=== PATIENT | male | born 1950 ===

== ENCOUNTER 2017-10-21 08:43 | Emergency (ER) | payer MEDICARE ==
[~2017-10-21] VITALS: Ht 180.3 cm; Wt 107.7 kg
[2017-10-21 08:47] VITALS: BP 150/88
[2017-10-21] MEDS ORDERED: CEFTRIAXONE PMX 1GM/50ML 50 ML IV ONE (09:30)
[2017-10-21] MEDS ORDERED: SODIUM CHLORIDE 0.9% 1,000ML IVBOLUS ONE (09:30)
[2017-10-21] MEDS ORDERED: SODIUM CHLORIDE FLUSH 10ML SYR IVF ONE (09:30)
[2017-10-21 09:35] LABS: MEAN CORPUSCULAR HEMOGLOBIN 23.6 pg (27.5-34.5); MEAN CORPUSCULAR VOLUME 71.7 fL (81-97); MEAN PLATELET VOLUME 10.5 fL (7.4-10.4); PLATELET COUNT 214 x10^3/uL (130-400); RED CELL DISTRIBUTION WIDTH 17.3 % (9.4-14.8)
[2017-10-21 09:37] LABS: ALBUMIN 3.1 g/dL (3.4-5.0); ANION GAP 12 mmol/L (5-15); CALCIUM 8.7 mg/dL (8.5-10.1); CHLORIDE 102 mmol/L (98-107); CREATININE 1.35 mg/dL (0.7-1.3)
[2017-10-21 09:41] LABS: TROPONIN I < 0.015 ng/mL (0.000-0.045)
[2017-10-21 09:47] LABS: MD YES
[2017-10-21 09:49] LABS: BAND#(MANUAL) 0.12 x10^3/uL; BANDS%(MANUAL) 2 % (0-7); LYMPH#(MANUAL) 0.75 x10^3/uL (1-3.4); LYMPHS% (MANUAL) 13 % (22-44); MONOS#(MANUAL) 0.46 x10^3/uL (0.3-2.7); MONOS% (MANUAL) 8 % (2-9); SEG#(MANUAL) 4.41 x10^3/uL (1.8-6.8); SEGS% (MANUAL) 76 % (42-75)
[2017-10-21 09:50] LABS: ANISOCYTOSIS 1+; EOS#(MANUAL) 0.06 x10^3/uL (0.0-0.4); EOS% (MANUAL) 1 % (1-7); MICROCYTOSIS 1+; OVALOCYTES 1+
[2017-10-21 09:51] LABS: <PLATELET ESTIMATE> ADEQUATE; LARGE PLATELETS 1+
[2017-10-21] MEDS ORDERED: CEFTRIAXONE PMX 1GM/50ML 50 ML ONE (10:13)
== END 2017-10-21 10:45 | disposition home or self-care (01) ==
LOC: ED 10:39
DX: R50.9 Fever, unspecified (principal); J15.8 Pneumonia due to other specified bacteria; B96.89 Other specified bacterial agents as the cause of diseases classified elsewhere; D64.9 Anemia, unspecified
CPT/HCPCS: 36415; 71045; 80048; 82040; 84484; 85025; 93005; 96365; 99285; J0696; J7030

== ENCOUNTER 2018-04-28 09:36 | Emergency (ER) | payer MEDICARE ==
[~2018-04-28] VITALS: Ht 182.9 cm; Wt 105.2 kg
[2018-04-28 09:51] VITALS: BP 151/80
[2018-04-28] MEDS ORDERED: ACETAMINOPHEN 325 MG TABLET PO ONE (10:30)
[2018-04-28] MEDS ORDERED: ACETAMINOPHEN 325 MG TABLET ONE (10:36)
[2018-04-28 10:55] LABS: RAPID INFLUENZA A POSITIVE (Negative); RAPID INFLUENZA B Negative (Negative)
[2018-04-28 10:55] LABS: BASOPHILS # (AUTO) 0.02 x10^3/uL (0-0.1); BASOPHILS % (AUTO) 0 % (0-1); EOSINOPHILS % (AUTO) 0 % (1-7); LYMPHOCYTES # (AUTO) 0.67 x10^3/uL (1-3.4); LYMPHOCYTES % (AUTO) 15 % (22-44); MD NO; MEAN CORPUSCULAR HEMOGLOBIN 23.1 pg (27.5-34.5); MEAN CORPUSCULAR HGB CONC 32.2 g/dL (33.2-36.2); MEAN CORPUSCULAR VOLUME 71.6 fL (81-97); MEAN PLATELET VOLUME 10.8 fL (7.4-10.4); MONOCYTES # (AUTO) 0.44 x10^3/uL (0.2-0.8); MONOCYTES % (AUTO) 10 % (2-9); NEUTROPHILS # (AUTO) 3.28 x10^3/uL (1.8-6.8); NEUTROPHILS % (AUTO) 74 % (42-75); PLATELET COUNT 199 x10^3/uL (130-400); RED BLOOD COUNT 5.35 x10^6/uL (4.38-5.82)
[2018-04-28 11:06] LABS: ALBUMIN 3.9 g/dL (3.4-5.0); ANION GAP 8 mmol/L (5-15); CALCIUM 8.9 mg/dL (8.5-10.1); CHLORIDE 108 mmol/L (98-107); CREATININE 1.37 mg/dL (0.7-1.3)
== END 2018-04-28 11:27 | disposition home or self-care (01) ==
LOC: ED 11:25
DX: J10.1 Influenza due to other identified influenza virus with other respiratory manifestations (principal); I10 Essential (primary) hypertension; K21.9 Gastro-esophageal reflux disease without esophagitis; F32.9 Major depressive disorder, single episode, unspecified
CPT/HCPCS: 36415; 71046; 80048; 82040; 83605; 84145; 85025; 87040; 87400; 99284

== ENCOUNTER 2019-04-17 09:30 | Emergency (ER) | payer MEDICARE ==
[~2019-04-17] VITALS: Ht 180.3 cm; Wt 106.9 kg
[~2019-04-17 09:30] MED LIST: ASPI-515 PO; BENA20TA5 PO; DOXA1TAB2 PO; DULO30CA2 PO; FAMO20TA7 PO; HYDR12.517 PO
--- NOTE | 2019-04-17 09:50 | NUR ---
Pt states "I hit my head three times last month." Pt states since then has been having intermittent headaches and tension on scalp. Pt states that he has been having this current headache x3 days. No neuro defecits, A&O x4. resps even and unlabored. bp/spo2 monitors in place. call light within reach. edmd at bedside to evaluate at this time.
[2019-04-17 10:08] LABS: BASOPHILS # (AUTO) 0.07 x10^3/uL (0-0.1); BASOPHILS % (AUTO) 1 % (0-1); EOSINOPHILS # (AUTO) 0.08 x10^3/uL (0-0.4); EOSINOPHILS % (AUTO) 2 % (1-7); LYMPHOCYTES # (AUTO) 1.95 x10^3/uL (1-3.4); LYMPHOCYTES % (AUTO) 38 % (22-44); MD NO; MEAN CORPUSCULAR HEMOGLOBIN 27.5 pg (27.5-34.5); MEAN CORPUSCULAR VOLUME 83.3 fL (81-97); MEAN PLATELET VOLUME 8.9 fL (7.4-10.4); MONOCYTES # (AUTO) 0.38 x10^3/uL (0.2-0.8); MONOCYTES % (AUTO) 8 % (2-9); NEUTROPHILS # (AUTO) 2.64 x10^3/uL (1.8-6.8); NEUTROPHILS % (AUTO) 52 % (42-75); PLATELET COUNT 237 x10^3/uL (130-400); RED BLOOD COUNT 5.63 x10^6/uL (4.38-5.82); RED CELL DISTRIBUTION WIDTH 20.5 % (9.4-14.8)
[2019-04-17 10:10] LABS: CHLORIDE 112 mmol/L (98-107); HCT (SEDRATE) 46.9 % (39.2-51.8)
[2019-04-17 10:31] LABS: ALBUMIN 3.7 g/dL (3.4-5.0); ANION GAP 8 mmol/L (5-15); CALCIUM 8.8 mg/dL (8.5-10.1); CREATININE 1.12 mg/dL (0.7-1.3)
--- NOTE | 2019-04-17 10:39 | NUR ---
pt in ct at this time.
--- NOTE | 2019-04-17 10:43 | NUR ---
PT BACK TO ROOM FROM CT AT THIS TIME.
--- NOTE | 2019-04-17 11:30 | NUR ---
pt resting in [facility]. pt's aox4. resps even and unlabored. bp/spo2 monitors in place. call light within reach.
[2019-04-17 11:54] VITALS: BP 141/65
--- NOTE | 2019-04-17 11:54 | NUR ---
Patient given discharge instructions and they have confirmed that they understand the instructions. Patient ambulatory with steady gait.
== END 2019-04-17 11:55 | disposition home or self-care (01) ==
LOC: ED 11:30
DX: R51 Headache (principal); R93.0 Abnormal findings on diagnostic imaging of skull and head, not elsewhere classified; Z86.73 Personal history of transient ischemic attack (TIA), and cerebral infarction without residual deficits; I10 Essential (primary) hypertension
CPT/HCPCS: 36415; 70450; 80048; 82040; 85025; 85651; 99284